=== PATIENT | male | born 1970 | race Caucasian/White ===

== ENCOUNTER 2019-12-29 19:25 | Emergency (ER) | payer MEDICAID ==
[~2019-12-29] VITALS: Ht 170.2 cm; Wt 75.0 kg
[2019-12-29] MEDS ORDERED: SODIUM CHLORIDE 0.9% 1,000 ML IV ONE (20:38)
[2019-12-29] MEDS ORDERED: ASPIRIN 81MG TABLET PO ONE (20:45)
[2019-12-29] MEDS ORDERED: NITROGLYCERIN 0.4MG TABLET SL SL PRN (20:45)
[2019-12-29 21:32] LABS: CHLORIDE 106 mEq/L (98-107)
[2019-12-29 21:35] LABS: BASOPHILS % 0.8 % (0.0-2.0); EOSINOPHILS % 2.8 % (0.0-5.0); HEMATOCRIT. 43.9 % (42.0-52.0); HEMOGLOBIN. 14.9 g/dL (14.0-18.0); LYMPHOCYTES % 42.2 % (20.0-50.0); MEAN CORPUSCULAR VOLUME 91.3 fL (80.0-94.0); MONOCYTES % 6.3 % (2.0-8.0); NEUTROPHILS % 47.9 % (40.0-76.0); PLATELET 69 x1000/uL (130-400); RED BLOOD CELL COUNT 4.81 mill/uL (4.7-6.1); RED CELL DISTRIBUTION WIDTH 15.4 % (11.6-14.6)
[2019-12-29 21:44] LABS: D-DIMER 3.23 mg/L FEU (<0.50); PARTIAL THROMBOPLASTIN TIME 28.2 sec (23.4-31.0); PROTHROMBIN TIME 11.3 sec (9.6-11.0)
[2019-12-29 21:45] LABS: ETHANOL BLOOD 391 mg/dL
[2019-12-29 21:48] LABS: CLARITY URINE CLEAR (CLEAR); COLOR URINE YELLOW (YELLOW); KETONES URINE NEGATIVE (NEGATIVE); LEUKOCYTE ESTERASE URINE NEGATIVE (NEGATIVE); NITRITE URINE NEGATIVE (NEGATIVE); OCCULT BLOOD URINE NEGATIVE (NEGATIVE); PROTEIN URINE NEGATIVE (NEGATIVE); SPECIFIC GRAVITY URINE 1.006 (1.005-1.030); UROBILINOGEN URINE 0.2 E.U./dL (0.2-1.0)
[2019-12-29 22:01] LABS: *AMPHETAMINES SCREEN URINE NEGATIVE (NEGATIVE); *BARBITURATES SCREEN URINE NEGATIVE (NEGATIVE); *BENZODIAZEPINES SCREEN URINE NEGATIVE (NEGATIVE); *COCAINE SCREEN URINE NEGATIVE (NEGATIVE); METHADONE URINE SCREEN NEGATIVE (NEGATIVE); OPIATES URINE SCREEN NEGATIVE (NEGATIVE)
[2019-12-29 22:02] LABS: CANNABINOID URINE SCREEN NEGATIVE (NEGATIVE); PHENCYCLIDINE URINE SCREEN NEGATIVE (NEGATIVE)
[2019-12-30 08:37] VITALS: BP 140/96
== END 2019-12-30 09:02 | disposition home or self-care (01) ==
LOC: ER 19:25
DX: F10.129 Alcohol abuse with intoxication, unspecified (principal); Y90.8 Blood alcohol level of 240 mg/100 ml or more; R07.89 Other chest pain; R45.851 Suicidal ideations; E11.9 Type 2 diabetes mellitus without complications; I10 Essential (primary) hypertension
CPT/HCPCS: 36415; 71045; 71275; 80053; 80305; 80307; 80320; 80329; 81003; 83880; 84484; 85025; 85379; 85610; 85730; 93005; 99285; J7030; Z7610; G0480

== ENCOUNTER 2020-01-21 12:32 | Emergency (ER) | payer MEDICAID ==
[~2020-01-21] VITALS: Ht 167.6 cm; Wt 76.0 kg
[2020-01-21] MEDS ORDERED: LORAZEPAM 2MG/ML CPJ IM STA (12:39)
[2020-01-21] MEDS ORDERED: DIPHENHYDRAMINE 50MG/ML VIAL IM STA (12:39)
[2020-01-21] MEDS ORDERED: SODIUM CHLORIDE 0.9% 1,000 ML IV ONE (12:39)
[2020-01-21] MEDS ORDERED: HALOPERIDOL LACTATE 5MG/ML VIAL IM STA (12:39)
[2020-01-21 13:10] LABS: BASOPHILS % 1.2 % (0.0-2.0); EOSINOPHILS % 1.1 % (0.0-5.0); HEMATOCRIT. 45.1 % (42.0-52.0); HEMOGLOBIN. 15.3 g/dL (14.0-18.0); LYMPHOCYTES % 32.8 % (20.0-50.0); MEAN CORPUSCULAR VOLUME 91.2 fL (80.0-94.0); MEAN PLATELET VOLUME 8.5 fl (7.4-10.4); MONOCYTES % 6.1 % (2.0-8.0); NEUTROPHILS % 58.8 % (40.0-76.0); PLATELET 245 x1000/uL (130-400); RED BLOOD CELL COUNT 4.95 mill/uL (4.7-6.1); RED CELL DISTRIBUTION WIDTH 14.4 % (11.6-14.6)
[2020-01-21 13:17] LABS: CHLORIDE 107 mEq/L (98-107)
[2020-01-21 13:18] LABS: CLARITY URINE CLOUDY (CLEAR); COLOR URINE DARK YELLOW (YELLOW); KETONES URINE 1+ (NEGATIVE); LEUKOCYTE ESTERASE URINE NEGATIVE (NEGATIVE); NITRITE URINE NEGATIVE (NEGATIVE); OCCULT BLOOD URINE NEGATIVE (NEGATIVE); PROTEIN URINE 1+ (NEGATIVE); SPECIFIC GRAVITY URINE 1.018 (1.005-1.030)
[2020-01-21 14:07] LABS: ETHANOL BLOOD 365 mg/dL
[2020-01-21 14:07] LABS: METHADONE URINE SCREEN NEGATIVE (NEGATIVE)
[2020-01-21 14:08] LABS: *AMPHETAMINES SCREEN URINE PRESUMTIVE POSITIVE (NEGATIVE); *BARBITURATES SCREEN URINE NEGATIVE (NEGATIVE); *COCAINE SCREEN URINE NEGATIVE (NEGATIVE); CANNABINOID URINE SCREEN NEGATIVE (NEGATIVE); OPIATES URINE SCREEN NEGATIVE (NEGATIVE); PHENCYCLIDINE URINE SCREEN NEGATIVE (NEGATIVE)
[2020-01-21 14:09] LABS: *BENZODIAZEPINES SCREEN URINE NEGATIVE (NEGATIVE)
[2020-01-22 04:50] VITALS: BP 130/72
== END 2020-01-22 05:00 | disposition home or self-care (01) ==
LOC: ER 12:38
DX: F10.129 Alcohol abuse with intoxication, unspecified (principal); Y90.0 Blood alcohol level of less than 20 mg/100 ml
CPT/HCPCS: 36415; 70450; 80053; 80305; 80307; 80320; 80329; 81003; 85025; 93005; 96372; 99285; J1200; J1630; J2060; J7030; G0480